=== PATIENT | male | born 1965 | race Caucasian/White ===

== ENCOUNTER 2018-09-17 07:58 | Emergency (ER) | payer OTHER ==
[~2018-09-17] VITALS: Ht 182.9 cm; Wt 113.4 kg
[~2018-09-17 07:58] MED LIST: AMLO10TA4 PO; ASP81CT PO; CLPD75T PO; DIOVAN PO; Domperidone PO; NF-LOVAZAC PO; RABE20TA PO; [UNRECOGNIZED DRUG - OTHER] PO
[2018-09-17] MEDS ORDERED: NITROGLYCERIN 0.4 MG SL TABS BTL 25'S SL ONE (08:06)
[2018-09-17 08:13] LABS: BASOPHILS # (AUTO) 0.1 10^3/uL (0.0-0.1); BASOPHILS % (AUTO) 1 % (0-10); EOSINOPHILS # (AUTO) 0.3 10^3/uL (0.0-0.3); EOSINOPHILS % (AUTO) 3 % (0-10); HEMATOCRIT 46 % (40-54); HEMOGLOBIN 15.4 G/DL (13.3-17.7); LYMPHOCYTES # (AUTO) 2.7 X 10^3 (1.0-4.0); LYMPHOCYTES % (AUTO) 30 % (12-44); MEAN CORPUSCULAR HEMOGLOBIN 31 PG (25-34); MEAN CORPUSCULAR HGB CONC 33 G/DL (32-36); MEAN CORPUSCULAR VOLUME 94 FL (80-99); MEAN PLATELET VOLUME 11.8 FL (7.4-10.4); MONOCYTES # (AUTO) 0.8 X 10^3 (0.0-1.0); MONOCYTES % (AUTO) 9 % (0-12); NEUTROPHILS # (AUTO) 5.2 X 10^3 (1.8-7.8); NEUTROPHILS % (AUTO) 57 % (42-75); PLATELET COUNT 195 10^3/uL (130-400); RED BLOOD COUNT 4.94 10^6/uL (4.35-5.85); RED CELL DISTRIBUTION WIDTH 13.3 % (10.0-14.5); WHITE BLOOD COUNT 9.1 10^3/uL (4.3-11.0)
[2018-09-17] MEDS ORDERED: NITROGLYCERIN 0.4 MG SL TABS BTL 25'S SL PRN (08:15)
[2018-09-17] MEDS ORDERED: ANTACID SUSP 30 ML UDC (MYLANTA) ONE (08:24)
[2018-09-17] MEDS ORDERED: LIDOCAINE 2% VISCOUS 15 ML UDC ONE (08:24)
--- NOTE | 2018-09-17 08:25 | Diagnostic Imaging Report ---
INDICATION: Chest pain and tightness. EXAMINATION: Portable upright view of the chest is obtained with comparison made to study of 03/14/2011. FINDINGS: Heart size and pulmonary vascularity are within normal limits, and the lungs are clear, bilaterally. IMPRESSION: Unremarkable chest. Dictated by: Dictated on workstation # [id number]
[2018-09-17 08:34] LABS: INR 1.1 (0.8-1.4); PROTHROMBIN TIME PATIENT 14.1 SEC (12.2-14.7)
[2018-09-17 08:40] LABS: ALANINE AMINOTRANSFERASE 25 U/L (0-55); ALBUMIN 4.5 GM/DL (3.2-4.5); ALKALINE PHOSPHATASE 100 U/L (40-136); BILIRUBIN,TOTAL 0.3 MG/DL (0.1-1.0); BUN/CREATININE RATIO 23; CALCIUM 9.8 MG/DL (8.5-10.1); CARBON DIOXIDE 20 MMOL/L (21-32); CHLORIDE 106 MMOL/L (98-107); CREATININE SERUM 0.92 MG/DL (0.60-1.30); GFR ESTIMATED > 60; GLUCOSE 137 MG/DL (70-105); MAGNESIUM 2.3 MG/DL (1.8-2.4); POTASSIUM 4.3 MMOL/L (3.6-5.0); SODIUM 138 MMOL/L (135-145); TOTAL PROTEIN 7.6 GM/DL (6.4-8.2)
[2018-09-17 08:48] LABS: MYOGLOBIN SERUM 30.1 NG/ML (10.0-92.0)
--- NOTE | 2018-09-17 12:53 | ED Chest Pain ---
General Chief Complaint: Chest Pain Stated Complaint: CHEST PAIN Nursing Triage Note: PT TO ROOM 8 PER W/C PT CO OF CHEST PAIN STARTED AT 0730 THIS AM. PT HAS TIGHTNESS IN CHEST, AND SOA. PT STATES ALSO HAS ALOT OF GAS. PT STATES HAS TAKEN (2) 325MG ASA THIS AM Nursing Sepsis Screen: No Definite Risk Source: patient Exam Limitations: no limitations History of Present Illness Date Seen by Provider: Sep 17, 2018 Time Seen by Provider: 08:07 Initial Comments This 53-year-old gentleman presents to emergency room with complaints of shortness of air, palpitations, and tightness across his arms. He denies any true chest pain. Discomfort is rated as 5/10. He states the symptoms are better with rest and worse with activity. He also complains of a GERD sensation described as a "basketball" sensation in his epigastric region. He reports long-term problems with GERD and excessive belching. He has no known cardiac disease. He has had cardiac catheterization in the past which she believes was approximately 7 years ago. It was performed at an outside facility. Patient is a tobacco smoker. His primary care provider is Yael Araujo. He took aspirin 650 mg at home. Allergies and Home Medications Allergies Coded Allergies: Codeine (Unverified Allergy, Mild, NAUSEA, IRVIN, 03/14/11) Home Medications Amlodipine Besylate 10 Mg Tablet, 10 MG PO DAILY, (Reported) Aspirin 81 Mg Chew, 81 MG PO DAILY, (Reported) Clopidogrel 75 Mg Tablet, 75 MG PO DAILY, (Reported) Rabeprazole Sodium 20 Mg Tablet.dr, 20 MG PO DAILY, (Reported) [Diovan] , PO DAILY, (Reported) [Domperidone] , 1 TAB PO DAILY, (Reported) Patient Home Medication List Home Medication List Reviewed: Yes Review of Systems Review of Systems Constitutional: no symptoms reported EENTM: No Symptoms Reported Respiratory: See HPI Cardiovascular: See HPI Gastrointestinal: No Symptoms Reported Genitourinary: No Symptoms Reported Musculoskeletal: see HPI Skin: no symptoms reported Psychiatric/Neurological: No Symptoms Reported Endocrine: No Symptoms Reported Hematologic/Lymphatic: No Symptoms Reported Past Xuskpjg-Wivwez-Wtnmce Hx Past Med/Social Hx: Reviewed and Corrections made Patient Social History Alcohol Use: Denies Use Recreational Drug Use: No Smoking Status: Current Everyday Smoker Type Used: Cigarettes Recent Foreign Travel: No Contact w/Someone Who Travel: No Recent Infectious Disease Expo: No Recent Hopitalizations: No Physical Abuse: No Sexual Abuse: No Past Medical History Surgeries: Yes Cardiac (Heart catheterization without interventions), Gallbladder, Orthopedic Respiratory: No Cardiac: Yes Hypertension Neurological: No Genitourinary: No Gastrointestinal: Yes Gastroesophageal Reflux Musculoskeletal: No Endocrine: No HEENT: No Cancer: No Psychosocial: No Integumentary: No Blood Disorders: No Physical Exam Vital Signs Vital Signs - First Documented 09/17/18 08:00 Temp 97.5 Pulse 90 Resp 18 B/P (MAP) 183/ Pulse Ox 98 O2 Delivery Nasal Cannula O2 Flow Rate 2.0 Capillary Refill : Less Than 3 Seconds Height, Weight, BMI Height: 6'0" Weight: 250lbs. oz. 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 Norm as Tested, Other (Negative Rafael) Skin: Normal Color, Warm/Dry Progress/Results/Core Measures Results/Orders Lab Results Laboratory Tests Test 09/17/18 08:05 09/17/18 11:55 Range/Units White Blood Count 9.1 4.3-11.0 10^3/uL Red Blood Count 4.94 4.35-5.85 10^6/uL Hemoglobin 15.4 13.3-17.7 G/DL Hematocrit 46 40-54 % Mean Corpuscular Volume 94 80-99 FL Mean Corpuscular Hemoglobin 31 25-34 PG Mean Corpuscular Hemoglobin Concent 33 32-36 G/DL Red Cell Distribution Width 13.3 10.0-14.5 % Platelet Count 195 130-400 10^3/uL Mean Platelet Volume 11.8 H 7.4-10.4 FL Neutrophils (%) (Auto) 57 42-75 % Lymphocytes (%) (Auto) 30 12-44 % Monocytes (%) (Auto) 9 0-12 % Eosinophils (%) (Auto) 3 0-10 % Basophils (%) (Auto) 1 0-10 % Neutrophils # (Auto) 5.2 1.8-7.8 X 10^3 Lymphocytes # (Auto) 2.7 1.0-4.0 X 10^3 Monocytes # (Auto) 0.8 0.0-1.0 X 10^3 Eosinophils # (Auto) 0.3 0.0-0.3 10^3/uL Basophils # (Auto) 0.1 0.0-0.1 10^3/uL Prothrombin Time 14.1 12.2-14.7 SEC INR Comment 1.1 0.8-1.4 Activated Partial Thromboplast Time 29 24-35 SEC Sodium Level 138 135-145 MMOL/L Potassium Level 4.3 3.6-5.0 MMOL/L Chloride Level 106 98-107 MMOL/L Carbon Dioxide Level 20 L 21-32 MMOL/L Anion Gap 12 5-14 MMOL/L Blood Urea Nitrogen 21 H 7-18 MG/DL Creatinine 0.92 0.60-1.30 MG/DL Estimat Glomerular Filtration Rate > 60 BUN/Creatinine Ratio 23 Glucose Level 137 H 70-105 MG/DL Calcium Level 9.8 8.5-10.1 MG/DL Corrected Calcium 9.4 8.5-10.1 MG/DL Magnesium Level 2.3 1.8-2.4 MG/DL Total Bilirubin 0.3 0.1-1.0 MG/DL Aspartate Amino Transf (AST/SGOT) 22 5-34 U/L Alanine Aminotransferase (ALT/SGPT) 25 0-55 U/L Alkaline Phosphatase 100 40-136 U/L Myoglobin 30.1 10.0-92.0 NG/ML Troponin I < 0.30 < 0.30 <0.30 NG/ML Total Protein 7.6 6.4-8.2 GM/DL Albumin 4.5 3.2-4.5 GM/DL My Orders Orders - ANISA DANIELLE MD Cbc With Automated Diff (09/17/18 08:07) Magnesium (09/17/18 08:07) Chest 1 View, Ap/Pa Only (09/17/18 08:07) Ekg Tracing (09/17/18 08:07) Cardiac Profile 1 (09/17/18 08:07) Comprehensive Metabolic Panel (09/17/18 08:07) Myoglobin Serum (09/17/18 08:07) Protime With Inr (09/17/18 08:07) Partial Thromboplastin Time (09/17/18 08:07) O2 (09/17/18 08:07) Monitor-Rhythm Ecg Trace Only (09/17/18 08:07) Nitroglycerin 0.4 Mg Btl 25's (Nitrostat (09/17/18 08:15) Saline Lock/Iv-Start (09/17/18 08:07) Nitroglycerin 0.4 Mg Btl 25's (Nitrostat (09/17/18 08:06) Antacid Suspension (Mylanta Suspension (09/17/18 08:24) Lidocaine 2% Viscous 15 Ml (Xylocaine Vi (09/17/18 08:24) Troponin I (09/17/18 12:00) Medications Given in ED Vital Signs/I&O 09/17/18 09/17/18 09/17/18 09/17/18 08:00 08:00 08:00 12:58 Temp 97.5 Pulse 90 68 Resp 18 18 B/P (MAP) 183/ 122/80 (94) Pulse Ox 98 98 98 O2 Delivery Nasal Cannula Nasal Cannula Nasal Cannula O2 Flow Rate 2.0 2.00 Progress Progress Note : Progress Note Patient take aspirin at home. Nitroglycerin was given. Patient did have gradual improvement in his symptoms. Troponin was negative. EKG was normal. I discussed options with him which included admission for observation and consultation with the spud grader versus a 4 hour troponin rule out and follow- up in the outpatient setting. Patient prefers the 4 hour rule out and would like to seek cardiology consultation from his primary care provider. A four- hour rule out was pursued and troponin was negative. Patient was asymptomatic except for some subtle epigastric discomfort. This was treated with GI cocktail which improved his symptoms. He was dismissed home in stable condition. Initial ECG Impression Date: Sep 17, 2018 Initial ECG Impression Time: 07:58 Initial ECG Rate: 84 Initial ECG Rhythm: Normal Sinus Initial ECG Intervals: Normal Initial ECG Impression: Normal Comment Normal sinus rhythm with no ST elevation or depression. No abnormal intervals or axis deviation. Diagnostic Imaging Diagonstic Imaging: Xray Plain Films/CT/US/NM/MRI: chest Comments Chest x-ray viewed by me and report reviewed. See report below: NAME: MECCA BRIGGS [facility] REC#: [id number] PT STATUS: REG ER : 1965 PHYSICIAN: ANISA DANIELLE MD ADMIT DATE: 09/17/18/ER Draft Date of Exam:09/17/18 CHEST 1 VIEW, AP/PA ONLY INDICATION: Chest pain and tightness. EXAMINATION: Portable upright view of the chest is obtained with comparison made to study of 03/14/2011. FINDINGS: Heart size and pulmonary vascularity are within normal limits, and the lungs are clear, bilaterally. IMPRESSION: Unremarkable chest. Dictated on workstation # [id number] Dict: 09/17/18820 Trans: 09/17/18824 [facility] [id number] Interpreted by: NEETU AMES MD Departure Impression Primary Impression: Palpitations Additional Impressions: Dyspnea Qualified Codes: R06.02 - Shortness of breath Chest tightness Gastroesophageal reflux disease Qualified Codes: K21.9 - Gastro-esophageal reflux disease without esophagitis Disposition: HOME, SELF-CARE Condition: Improved Departure-Patient Inst. Decision time for Depature: 12:49 Referrals: NO,LOCAL PHYSICIAN (PCP/Family) Primary Care Physician Patient Instructions: Chest Pain (DC) Add. Discharge Instructions: Follow-up with your doctor soon as possible and seek referral to a spud grader for further screening. Take aspirin EC 81 mg daily until otherwise instructed. Return to care if symptoms are worsening. Continue taking AcipHex as previously prescribed. Work towards smoking cessation and seek help from your doctor if needed. All discharge instructions reviewed with patient and/or family. Voiced understanding. ANISA DANIELLE MD Sep 17, 2018 12:53
[2018-09-17 12:58] VITALS: BP 122/80
== END 2018-09-17 12:58 | disposition home or self-care (01) ==
LOC: EDUNIT# 07:58 → ER 07:59
DX: R00.2 Palpitations (principal); R06.00 Dyspnea, unspecified; R07.89 Other chest pain; K21.9 Gastro-esophageal reflux disease without esophagitis; I10 Essential (primary) hypertension; F17.210 Nicotine dependence, cigarettes, uncomplicated; Z79.82 Long term (current) use of aspirin; Z95.9 Presence of cardiac and vascular implant and graft, unspecified; Z88.5 Allergy status to narcotic agent; Z79.52 Long term (current) use of systemic steroids; Z79.02 Long term (current) use of antithrombotics/antiplatelets
CPT/HCPCS: 36415; 71045; 80053; 83735; 83874; 84484; 85025; 85610; 85730; 93005; 93041

== ENCOUNTER 2019-11-28 16:50 | Emergency (ER) | payer OTHER ==
[~2019-11-28] VITALS: Ht 182 cm; Wt 112.0 kg
[2019-11-28] MEDS ORDERED: DICY20TA10 (17:20)
[2019-11-28] MEDS ORDERED: FLUC200T PO (18:23)
--- NOTE | 2019-11-28 18:24 | ED EENT ---
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 PT REPORTS HE HAS NO DIFFICULTY BREATHING/SOA AND DIFFICULTY SWALLOWING. PT STATES HE HAD A UPPER AND LOWER SCOPE DONE YESTERDAY AT [facility] AND WAS PUT ON BENTYL 20 MG Q 6 HR BUT DID NOT TAKE IT TODAY. Source: patient, spouse History of Present Illness Date Seen by Provider: Nov 28, 2019 Time Seen by Provider: 17:55 Initial Comments PT ARRIVES VIA POV FROM HOME STATES AROUND 1630, HE BEGAN TO SUDDENLY FEEL LIKE HIS TONGUE AND HIS GLANDS IN HIS NECK WERE SWOLLEN. NO DIFFICULTY SWALLOWING OR BREATHING NO ACTUAL PAIN NO RASH OR ITCHING ANYWHERE NO FEVER NO PROBLEMS TALKING NO UNCONTROLLABLE MOVEMENTS OF TONGUE NO NUMBNESS OR TINGLING TO FACE OR TONGUE STATES SYMPTOMS ARE ESSENTIALLY GONE NOW. NO HISTORY OF SIMILAR STATES HE HAD EGD + COLONOSCOPY DONE YESTERDAY AT [facility] BY DR. BONILLA WAS STARTED ON BENTYL FOR SPASTIC COLON--HAD ONE DOSE YESTERDAY AFTERNOON, AND NONE SINCE STATES HE HAS BEEN HAVING ALOT OF GI ISSUES RECENTLY--INCLUDING ACUTE D IVERTICULITIS, AND WAS TREATED WITH 2 DIFFERENT ANTIBIOTICS LAST WEEK, WHICH HE FINISHED A FEW DAYS AGO. PT ALSO HAS BEEN HAVING ALOT OF ACID REFLUX, WHICH HE STATES THAT HE GOT VERY ANXIOUS WHEN HE BEGAN HAVING THESE SYMPTOMS TODAY, AND "HAD ALOT OF GAS" AND BELCHING WITH SOME REFLUX A FEW TIMES PRIOR TO ARRIVAL HAS BEEN TAKING ALOT OF MIRALAX AND MYLANTA, AND STOOLS HAVE NOT BEEN REGULAR LATELY PCP: DR. OLGA HUMPHREY, [facility] GI: DR. BONILLA, [facility] Allergies and Home Medications Allergies Coded Allergies: codeine (Unverified Allergy, Mild, NAUSEA, IRVIN, 03/14/11) cefdinir (Verified Allergy, Unknown, 11/28/19) Home Medications Amlodipine Besylate 10 Mg Tablet, 10 MG PO DAILY, (Reported) Aspirin 81 Mg Chew, 81 MG PO DAILY, (Reported) Clopidogrel 75 Mg Tablet, 75 MG PO DAILY, (Reported) Fluconazole 200 Mg Tablet, 200 MG PO DAILY Prescribed by: AVIS SPEARS on 11/28/191822 Rabeprazole Sodium 20 Mg Tablet.dr, 20 MG PO DAILY, (Reported) [Diovan] , PO DAILY, (Reported) [Domperidone] , 1 TAB PO DAILY, (Reported) Patient Home Medication List Home Medication List Reviewed: Yes Review of Systems Review of Systems Constitutional: no symptoms reported Eyes: No Symptoms Reported Ears: No Symptoms Reported Nose: no symptoms reported Mouth: see HPI; denies pain Throat: see HPI; denies pain, denies neck stiffness, denies hoarse, denies aphonia, denies muffled, denies painful swallowing, denies difficulty with fluids Respiratory: no symptoms reported; No cough, No short of breath, No wheezing Cardiovascular: no symptoms reported; No chest pain Gastrointestinal: see HPI Skin: no symptoms reported; No pruritus, No rash Neurological: See HPI, Anxiety; Denies Headache, Denies Numbness, Denies Paresthesia, Denies Tingling, Denies Weakness Hematologic/Lymphatic: No Symptoms Reported Immunological/Allergic: no symptoms reported Past [id number] Hx Past Med/Social Hx: Reviewed and Corrections made Patient Social History Alcohol Use: Past History (HX OF HEAVY USE, NONE FOR YEARS) Recreational Drug Use: No Smoking Status: Current Everyday Smoker (1 PPD) Type Used: Cigarettes (1 PPD) Recent Foreign Travel: No Contact w/Someone Who Travel: No Recent Infectious Disease Expo: No Recent Hopitalizations: No Physical Abuse: No Sexual Abuse: No Mistreated: No Fear: No Past Medical History Surgeries: Yes (EGD/COLONOSCOPY 11/27/19 AT [facility];CARDIAC CATHS; KNEE SURGERIES) Cardiac, Gallbladder, Orthopedic Respiratory: No Cardiac: Yes (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) Coronary Artery Disease, High Cholesterol, Hypertension Neurological: No Genitourinary: No Gastrointestinal: Yes (S/P CHOLECYSTECTOMY) Gastroesophageal Reflux, Diverticulosis, Gall Bladder Disease, Irritable Bowel Musculoskeletal: Yes (MUJLTIPLE KNEE SURGERIES) Endocrine: No HEENT: No Cancer: No Psychosocial: Yes Anxiety Integumentary: No Blood Disorders: No Family Medical History PSH: -CARDIAC CATHS--2005 AND 03/2011--MILD CAD, NO INTERVENTION -MULJTIPLE KNEE SURGERIES -CHOLECYSTECTOMY -EGD + COLONOSCOPY 11/27/19 AT [facility]--GERD/DIVERTICULAR DISEASE/SPASTIC COLON/IBS Physical Exam Vital Signs Vital Signs - First Documented 11/28/19 17:12 Temp 36.7 Pulse 74 Resp 16 B/P (MAP) 137/86 (103) Pulse Ox 99 Height, Weight, BMI Height: 6'0" Weight: 250lbs. oz. 113.928396eh; 33.00 BMI Method:Stated General Appearance: WD/WN, no apparent distress, other (STRONG ODOR OF CIGARETTES) Eyes: bilateral eye PERRL, bilateral eye EOMI Nose: normal inspection Mouth/Throat: No dental tenderness, No excessive drooling, No mandibular swelling, No pharynx swelling, No pharynx tenderness, No tongue swollen, No tonsillar exudate, No tonsillar swelling, No trismus, No uvula swelling, No voice changes; other (MODERATE AMOUNT OF THRUSH TO TONGUE. NO SWELLING TO TONGUE OR SUBLINGUAL AREA. 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 Referrals: NO,LOCAL PHYSICIAN (PCP/Family) Primary Care Physician Patient Instructions: Thrush (DC) Add. Discharge Instructions: LOTS OF CLEAR LIQUIDS HOLD BENTYL FOR NOW FOLLOW UP WITH YOUR DR IN 3-4 DAYS FOR FURTHER CARE, RETURN TO ER IF SYMPTOMS WORSEN All discharge instructions reviewed with patient and/or family. Voiced und erstanding. Scripts Fluconazole (Diflucan) 200 Mg Tablet 200 MG PO DAILY for FOR YEAST INFECTION, #10 TAB Prov: AVIS SPEARS DO 11/28/19 AVIS SPEARS DO Nov 28, 2019 18:23
[2019-11-28] MEDS ORDERED: FLUCONAZOLE 150 MG TABLET (ED ONLY) PO ONE (18:30)
[2019-11-28 18:33] VITALS: BP 132/80
== END 2019-11-28 18:33 | disposition home or self-care (01) ==
LOC: EDUNIT# 16:50 → ER 16:51
DX: B37.0 Candidal stomatitis (principal); I10 Essential (primary) hypertension; E78.00 Pure hypercholesterolemia, unspecified; I25.10 Atherosclerotic heart disease of native coronary artery without angina pectoris; K21.9 Gastro-esophageal reflux disease without esophagitis; F17.210 Nicotine dependence, cigarettes, uncomplicated; Z88.5 Allergy status to narcotic agent; Z88.1 Allergy status to other antibiotic agents; Z79.82 Long term (current) use of aspirin; Z79.02 Long term (current) use of antithrombotics/antiplatelets
CPT/HCPCS: 99283